=== PATIENT | female | born 2000 | race Caucasian/White ===

== ENCOUNTER 2022-06-28 03:00 | Emergency (ER) | payer SELFPAY ==
[~2022-06-28] VITALS: Ht 165.1 cm; Wt 62.0 kg
[2022-06-28] MEDS ORDERED: TETANUS, DIPHTHERIA, PERTUSSIS VAC/PF 0.5ML (>10YR OLD) IM ONE (03:45)
[2022-06-28] MEDS ORDERED: SILVER SULFADIAZINE 1% CREAM 25GM TOP ONE (03:45)
[2022-06-28] MEDS ORDERED: MORPHINE SULFATE 4 MG/ML CPJ (NOT FOR IM USE) IV ONE (03:45)
[2022-06-28] MEDS ORDERED: HYDROCODONE/ACETAMINOPHEN 10/325MG TABLET PO ONE (03:45)
[2022-06-28 03:59] VITALS: BP 110/83
[2022-06-28] MEDS ORDERED: IBUP-2029 MT (03:59)
[2022-06-28] MEDS ORDERED: SILV20CR13 TP (03:59)
[2022-06-28] MEDS ORDERED: CEPHALEXIN 250MG CAPSULE PO NR (04:15)
== END 2022-06-28 04:40 | disposition home or self-care (01) ==
LOC: ER 03:00
DX: T24.201A Burn of second degree of unspecified site of right lower limb, except ankle and foot, initial encounter (principal); T30.0 Burn of unspecified body region, unspecified degree; T31.0 Burns involving less than 10% of body surface; T79.9XXA Unspecified early complication of trauma, initial encounter; X08.8XXA Exposure to other specified smoke, fire and flames, initial encounter; Y93.89 Activity, other specified; Y92.89 Other specified places as the place of occurrence of the external cause; Y99.8 Other external cause status
CPT/HCPCS: 16000; 90471; 90715; 96374; 99283; J2270